=== PATIENT | female | born 1995 | race Caucasian/White ===

== ENCOUNTER → 2017-12-29 | Emergency (ER) | payer OTHER ==
[~2017-12-29] VITALS: Ht 157.5 cm; Wt 54.4 kg
== END | disposition home or self-care (01) ==
LOC: ER 13:07
DX: T23.232A Burn of second degree of multiple left fingers (nail), not including thumb, initial encounter (principal); X10.2XXA Contact with fats and cooking oils, initial encounter; Y93.89 Activity, other specified; Y92.69 Other specified industrial and construction area as the place of occurrence of the external cause; Y99.8 Other external cause status

== ENCOUNTER → 2018-01-18 | Emergency (ER) | payer OTHER | END | disposition home or self-care (01) | LOC: ER 13:12 | DX: B34.9 Viral infection, unspecified (principal) ==

== ENCOUNTER 2023-01-17 10:33 | Emergency (ER) | payer OTHER ==
[~2023-01-17] VITALS: Ht 154.9 cm; Wt 56.7 kg
[2023-01-17] MEDS ORDERED: MEDROLPACK PO (14:54)
[2023-01-17] MEDS ORDERED: ZYRTEC10 M3 PO (14:54)
[2023-01-17] MEDS ORDERED: ATARAX25 MG PO (14:54)
== END 2023-01-17 16:46 | disposition home or self-care (01) ==
LOC: ER 10:33
DX: R21 Rash and other nonspecific skin eruption (principal); Z91.018 Allergy to other foods